=== PATIENT | female | born 2000 | race Caucasian/White ===

== ENCOUNTER 2024-07-31 13:39 | Outpatient (REF) | payer OTHER, SELFPAY ==
--- NOTE | 2024-07-31 13:44 | EMG_ITS ---
Chief complaint: On and off fingers tingling, denies neck pain Reason for referral: Evaluate for Carpal Tunnel Syndrome Referred by: Enmanuel SPANGLER Procedure done: Bilateral upper extremities NCS/EMG Precautions and/or limitations: None The limb temperature was monitored continuously and remained between 32-36 degrees C during the performance of the NCS. Nerve Conduction Studies Anti Sensory Summary Table ?Stim Site NR Onset (ms) Norm Onset (ms) Peak (ms) Norm Peak (ms) O-P Amp (?V) Norm O-P Amp Site1 Site2 Delta-0 (ms) Dist (cm) Yonatan (m/s) Norm Yonatan (m/s) Left Median Anti Sensory (2nd Digit) Wrist ? 2.3 3.3 <3.6 79.6 >10 Wrist 2nd Digit 2.3 14.0 61 Right Median Anti Sensory (2nd Digit) Wrist ? 2.3 3.3 <3.6 67.9 >10 Wrist 2nd Digit 2.3 14.0 61 Left Ulnar Anti Sensory (5th Digit) Wrist ? 2.4 3.3 <3.7 57.1 >15.0 Wrist 5th Digit 2.4 14.0 58 Right Ulnar Anti Sensory (5th Digit) Wrist ? 2.1 3.1 <3.7 70.4 >15.0 Wrist 5th Digit 2.1 14.0 67 Motor Summary Table ?Stim Site NR Onset (ms) Norm Onset (ms) O-P Amp (mV) Norm O-P Amp iAmp (mV) Amp (1st) (%) Site1 Site2 Delta-0 (ms) Dist (cm) Yonatan (m/s) Norm Yonatan (m/s) Left Median Motor (Abd Poll Brev) Wrist ? 2.9 <3.9 13.5 >4.5 18.7 100.0 Elbow Wrist 3.7 21.0 57 >45 Elbow ? 6.6 13.3 18.1 98.5 Right Median Motor (Abd Poll Brev) Wrist ? 2.8 <3.9 12.4 >4.5 15.5 100.0 Elbow Wrist 3.7 19.0 51 >45 Elbow ? 6.5 12.1 14.7 97.6 Left Ulnar Motor (Abd Dig Minimi) Wrist ? 2.7 <3.0 6.8 >5 8.8 100.0 B Elbow Wrist 3.2 19.0 59 >45 B Elbow ? 5.9 6.4 8.9 94.1 A Elbow B Elbow 1.4 10.0 71 >45 A Elbow ? 7.3 2.7 5.5 39.7 Right Ulnar Motor (Abd Dig Minimi) Wrist ? 3.0 <3.0 7.0 >5 9.0 100.0 B Elbow Wrist 3.0 20.0 67 >45 B Elbow ? 6.0 7.1 9.1 101.4 A Elbow B Elbow 1.0 10.0 100 >45 A Elbow ? 7.0 6.4 8.4 91.4 Comparison Summary Table ?Stim Site NR Peak (ms) Norm Peak (ms) P-T Amp (?V) Site1 Site2 Delta-P (ms) Norm Delta (ms) Right Median/Radial Dig I Comparison (Digit 1 - 10cm) Median ? 2.6 <2.9 63.5 Median Radial -0.5 Radial ? 3.1 <2.8 39.5 EMG ?Side Muscle Nerve Root Ins Act Fibs Psw Amp Dur Poly Recrt Int Pat Comment Right 1stDorInt Ulnar C8-T1 Nml Nml Nml Nml Nml 0 Nml Complete Right FlexCarRad Median C6-7 Nml Nml Nml Nml Nml 0 Nml Complete Right Biceps Musculocut C5-6 Nml Nml Nml Nml Nml 0 Nml Complete Right Triceps Radial C6-7-8 Nml Nml Nml Nml Nml 0 Nml Complete Right Deltoid Axillary C5-6 Nml Nml Nml Nml Nml 0 Nml Complete Left 1stDorInt Ulnar C8-T1 Nml Nml Nml Nml Nml 0 Nml Complete Left FlexCarRad Median C6-7 Nml Nml Nml Nml Nml 0 Nml Complete Left Biceps Musculocut C5-6 Nml Nml Nml Nml Nml 0 Nml Complete Left Triceps Radial C6-7-8 Nml Nml Nml Nml Nml 0 Nml Complete Left Deltoid Axillary C5-6 Nml Nml Nml Nml Nml 0 Nml Complete Paraspinal EMG ?Side Muscle Nerve Root Ins Act Fibs Psw Comment Right Cervical Upper Rami Nml Nml Nml Right Cervical Mid Rami Nml Nml Nml Right Cervical Lower Rami Nml Nml Nml Left Cervical Upper Rami Nml Nml Nml Left Cervical Mid Rami Nml Nml Nml Left Cervical Lower Rami Nml Nml Nml FINDINGS: All motor and sensory nerves tested showed normal latencies, amplitudes and conduction velocities. Concentric needle EMG was performed in selected muscles of the bilateral upper extremities and cervical paraspinals. Study did not reveal signs of electric abnormalities as shown in the table above. IMPRESSION: 1. This is a normal study. 2. There is no electrodiagnostic evidence for median neuropathy, ulnar neuropathy, brachial plexopathy, or cervical radiculopathy. Thank you for your kind referral. Louise Blanca MD, BIB Board Certified, [place] [employer] and [employer] (ABPMR) Board Certified, [place] Board [employer] Electrodiagnostic Medicine (ABEM) CODIN [phone] MTDD
--- OUTSIDE RECORDS SUMMARY | 2024-07-31 17:05 | XMS_ITS | Data Portability ---
Author Organization [facility], [facility] Address [address] [place] [address] Assessment No assessment recorded. Plan of Treatment Reminders Order Date Submit Date Provider Last Modified By Organization Details Last Modified Time Details Appointments None recorded. Lab rapid flu (A+B) 2021 022 [email or web address] 1 [facility], [address] [place] [address], [phone], 18:27:18 urinalysis, dipstick 2021 022 [email or web address] 1 [facility], [address] [place] [address], [address], 18:27:18 test, urine 2021 [email or web address] [place] [address], [address] [place] [address], [address], 18:27:18 Referral None recorded. Procedures None recorded. Surgeries None recorded. Imaging electrocard iogram 2021 022 [email or web address] 9 [facility], [address] [place] [address], [address], 18:31:02 Medication Orders ondansetron HCl 4 mg tablet 2021 022 [id number], [address] [place], [address], 18:27:50 Patient TargetsNo targets recorded. Patient Instructions Encounter Date Encounter Id Patient Instructions Last Modified By Organization Details Last Modified Time 04/26/2022 [id number] nausea and vomiting: care instructions [email or web address] Not available 04/26/2022 18:27:48 dehydration: car e instructions [email or web address] Not available 04/26/2022 18:27:48 oral rehydration : care instructions [email or web address] Not available 04/26/2022 18:27:48 Reason for Referral None Reported. Results Created Date Observation Date Name Description Value Unit Range Abnormal Flag Note LastModifiedBy Organization Detail LastModifiedTime 04/26/20 22 04/26/2022 rapid flu (A+B) Unknown Analyte Normal = Negati ve Not Available 20[address] [address], [address], 04/26/2022 17:10:53 04/26/20 22 04/26/2022 rapid flu (A+B) Unknown Analyte Normal = Negati ve Not Available 2099turner [address], [address], 04/26/2022 17:10:53 04/26/20 22 04/26/2022 rapid flu (A+B) Unknown Analyte negati ve Not Available [facility] [address], [address], 04/26/2022 17:10:53 04/26/20 22 04/26/2022 rapid flu (A+B) Unknown Analyte negati ve Not Available [facility] [address], [address], 04/26/2022 17:10:53 04/26/20 22 04/26/2022 pregn mariely test, urine Unknown Analyte Normal = Negati ve Not Available 2099turner [address], [address], 04/26/2022 17:11:24 04/26/20 22 04/26/2022 pregn mariely test, urine Unknown Analyte negati ve Not Available 2099[facility] ac [address], [place], [address], 04/26/2022 17:11:24 04/26/20 22 04/26/2022 urina lysis , dipst ick Unknown Analyte Normal = light yellow Not Available 2099[facility] [address], [place], [address], 04/26/2022 17:11:06 04/26/20 22 04/26/2022 urina lysis , dipst ick Unknown Analyte Normal = clear Not Available [facility] [address], [place], [address], 04/26/2022 17:11:06 04/26/20 22 04/26/2022 urina lysis , dipst ick Unknown Analyte Normal = negati ve Not Available 2099turner [address], [place], [address], 04/26/2022 17:11:06 04/26/20 22 04/26/2022 urina lysis , dipst ick Unknown Analyte Normal = Negati ve Not Available [facility] [address], [place], [address], 04/26/2022 17:11:06 04/26/20 22 04/26/2022 urina lysis , dipst ick Unknown Analyte Normal = Negati ve Not Available 20[address] ac [address], [place], [address], 04/26/2022 17:11:06 04/26/20 22 04/26/2022 urina lysis , dipst ick Unknown Analyte Normal = 1.010, 1.015, 1.020 Not Available [address]er [address], [place], [address], 04/26/2022 17:11:06 04/26/20 22 04/26/2022 urina lysis , dipst ick Unknown Analyte Normal = Negati ve Not Available 2099[facility] ac [address], [place], [address], 04/26/2022 17:11:06 04/26/20 22 04/26/2022 urina lysis , dipst ick Unknown Analyte Normal = 6.5, 7.0, 7.5, 8.0 Not Available 20[address] ac [address], [place], [address], 04/26/2022 17:11:06 04/26/20 22 04/26/2022 urina lysis , dipst ick Unknown Analyte Normal = Negati ve Not Available [facility] [address], [place], [address], 04/26/2022 17:11:06 04/26/20 22 04/26/2022 urina lysis , dipst ick Unknown Analyte Normal = 0.2, 1.0 Not Available [address] ac [address], [place], [address], 04/26/2022 17:11:06 04/26/20 22 04/26/2022 urina lysis , dipst ick Unknown Analyte Normal = Negati ve Not Available [address] [address], [place], [address], 04/26/2022 17:11:06 04/26/20 22 04/26/2022 urina lysis , dipst ick Unknown Analyte Normal = Negati ve Not Available 2099[facility] [address], [place], [address], 04/26/2022 17:11:06 04/26/20 22 04/26/2022 urina lysis , dipst ick Unknown Analyte Yellow Not Available parisa [address], [place], [address], 04/26/2022 17:11:06 04/26/20 22 04/26/2022 urina lysis , dipst ick Unknown Analyte Clear Not Available parisa [address], [place], [address], 04/26/2022 17:11:06 04/26/20 22 04/26/2022 urina lysis , dipst ick Unknown Analyte Negati ve Not Available turner ac [address], [place], [address], 04/26/2022 17:11:06 04/26/20 22 04/26/2022 urina lysis , dipst ick Unknown Analyte Small Not Available parisa [address], [place], [address], 04/26/2022 17:11:06 04/26/20 22 04/26/2022 urina lysis , dipst ick Unknown Analyte 40 mg/dL Not Available turner ac [address], [place], [address], 04/26/2022 17:11:06 04/26/20 22 04/26/2022 urina lysis , dipst ick Unknown Analyte 1.030 Not Available parisa [address], [place], [address], 04/26/2022 17:11:06 04/26/20 22 04/26/2022 urina lysis , dipst ick Unknown Analyte Negati ve Not Available turner pe [address], [place], [address], 04/26/2022 17:11:06 04/26/20 22 04/26/2022 urina lysis , dipst ick Unknown Analyte 6.5 Not Available parisa [address], [place], [address], 04/26/2022 17:11:06 04/26/20 22 04/26/2022 urina lysis , dipst ick Unknown Analyte Negati ve Not Available [address] ac [address], [place], [address], 04/26/2022 17:11:06 04/26/20 22 04/26/2022 urina lysis , dipst ick Unknown Analyte 0.2 E.U./d L Not Available [address] ac [address], [place], [address], 04/26/2022 17:11:06 04/26/20 22 04/26/2022 urina lysis , dipst ick Unknown Analyte Negati ve Not Available [address] ac [address], [place], [address], 04/26/2022 17:11:06 04/26/20 22 04/26/2022 urina lysis , dipst ick Unknown Analyte Negati ve Not Available [address]turner [address], [place], [address], 04/26/2022 17:11:06 04/26/20 22 04/26/2022 elect rocar diogr am No observ ation record ed. [email or web address] [address]parisa [address], [place], [address], 04/26/2022 18:27:43 04/27/20 elect rocar diogr am No observ ation record ed. [email or web address] Not Available 19:35:31 Result Notes None recorded. Problems No Known Problems Procedures Surgical History None recorded. Imaging Results Imaging Date Name Status LastModified by Organization Details LastModified Time 04/26/2022 electrocardiogram completed [email or web address] [address] [facility], [place], [address], 04/26/2022 18:27:43 04/27/2022 electrocardiogram completed [email or web address] Infor mation not available 04/27/2022 19:35:31 Procedure Notes None recorded. Medical Equipment None Reported. Allergies No known drug allergies Medications Name Sig Start Date Stop Date Status Note LastModified by Organization Details LastModified Time ondansetron HCl 4 mg tablet Take 1 tablet every 6 hours by oral route as directe d. 2021 active Not Available Not Available Not Avai lable etonogestrel 0.12 mg-ethinyl estradiol 0.015 mg/24 hr vaginal ring 04/26 completed Not Available Not Available Not Available Xulane 150 mcg-35 mcg/24 hr transdermal patch active Not Available Not Available Not Available Vitals Date Recorded Body height Body mass index (BMI) Body mass index (BMI) Percentile per age and sex Body weight Pain severity - 0-10 verbal numeric rating [Score] - Reported Heart rate Provider Name and Address Organization Details Last Updated DateTime 2 170.18 cm 25.1 kg/m2 77 % 79632.7 8 g 8 102 /min LEON VARGAS PA - [facility] 2 18:17:00 Date Recorded Body temperature Respiratory rate Oxygen saturation Oxygen saturation in Arterial blood by Pulse oximetry Heart rate Systolic blood pressure Diastolic blood pressure Provider Name and Address Organization Details Last Updated DateTime 2 97 [degF] 18 /min 100 % 100 % 116 /min 133 mm[Hg] 88 mm[Hg] EVGENY TERRY PA - [facility] 2 17:16:23 Date Recorded Heart rate Provider Name an d Address Organization Details Last Updated DateTime 04/26/2022 120 /min MAX MCELROY MD [address] [place], [address], [place] - [facility] 04/26/2022 17:36:19 Social History Question Answer Notes LastModified by Organizat ion Details LastModified Time Tobacco Smoking Status Never Smoker ANÍBAL Wynn - [facility] 04/26/2022 17:07:58 What Is Your Level Of Alcohol Consumption? None Information not available 04/26/2022 Are You Currently Employed? Yes Information not available 04/26/2022 Do You Use Any Illicit Or Recreational Drugs? No Information not available 04/26/2022 Have You Recently Traveled Abroad? No Information not available 04/26/2022 Do You Or Have You Ever Used Any Other Forms Of Tobacco Or Nicotine? No Information not available 04/26/2022 Sex: Unknown Functional Status None recorded. Mental Status None recorded. Family History Relationship Description Onset Age of this Age Resolved Age Notes LastModified by Organization Details LastModified Time Father No current problems or disability Not available 04/26 17:07:34 Mother No current problems or disability Not available 04/26 17:07:34 Mother Malignant neoplastic disease Not available 2021 17:07:43 Medical History No medical history recorded. Gynecological History Statement/Question Response Date of LMP 04/04/2022 Obstetrics History GPAL:G 0 P 0 0 0 0 Past Encounters Encounter ID Performer Location Encounter Start Date Encounter Closed Date Diagnosis/Indication Diagnosis SNOMED-CT Code Diagnosis ICD10 Code Diagnosis Note [id number] [address] [address] 05/20/2019 09:48:42 05/20/2019 10:47:25 [id number] [facility] [address] [place] [address] 06/14/2018 16:54:11 06/14/2018 17:07:35 [id number] [facility] [address] [place] [address] 04/26/2022 13:27:11 04/26/2022 18:31:02 Nausea 233378247 R11.0 Drink plenty of fluids If your symptoms are getting worse, or if you develop new symptoms that concern you, you should call 911 or go to the Emergency Department . Return to [facility] or see your primary care physician if your symptoms fail to improve in 3-5 days. You should follow up sooner if your symptoms worsen significan tly or if you develop new symptoms that concern you. Tachycardia 8182980 R00. 0 As we discussed this is likely due to relative dehydratio n Dehydration 94533037 E86 .0 If your symptoms worsen or persist you should be re-evaluat ed. Drink plenty of fluids If your symptoms are getting worse, or if you develop new symptoms that concern you, you should call 911 or go to the Emergency Department . Health Concerns Section Related Observation LastModified by Organization Detai ls LastModified Time None Recorded Concern Status LastModified by Organization Details LastModified Time None Recorded Advance Directives Directive None Recorded Payers Encounter Date Sequence Insurance Name Policy Number Policy Mccollum Covered Member ID Mccollum Member ID Guarantor Name 05/20/2019 1 [facility] [id number] Layne Duong [id number] Layne Duong 04/26/[address] [place] [address] [id number] Layne Duong [id number] Layne Duong Notes Date Note Type Note Provider Name and Address Organization Details Recorded Time 04/26/2022 text/html Nausea / Vomitin g UCReported bypatient.Severit y:moderate Duration:3 weeks Onset/Timing:inte rmittent; worse with meals Context:no one else with similar symptoms; no possible food sources; no recent travel Alleviating Factors:nothing gives relief Aggravating Factors:eating Associated Symptoms:no fever;abdominal pain;diarrhea 3 wks of N/V and epigastric abd pain. Nausea is more consistent but vomiting happens mostly in the mornings. Home preg negative. Able to drink fine. Eating causes dry heaving and sometimes vomiting. Tried pepto but no help. Some chills/sweats. No abnl foods. No sick contacts. MAX MCELROY MD [address] [place], [address], [place] - [facility] 04/26/2022 18:48:07 OBGyn Episode No OBEpisode recorded.
--- OUTSIDE RECORDS SUMMARY | 2024-07-31 17:05 | XMS_ITS | Clinical Summary ---
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 Role Phone Unavailable Primary Care Provider Unavailabl e Medical History Medical History Date Comments Seizure (CMS/HCC) age 8 DX:Seizure (HC C) Family History Relation Name Status Comments Father Alive Maternal Grandfather Alive Maternal Grandmother Alive Mother Alive Paternal Grandfather Alive Paternal Grandmother Alive Sister Alive Social History Tobacco Use Types Packs/Day Years Used Date Smoking Tobacco: Never Alcohol Use Standard Drinks/Week Comments Not Asked 0 (1 standard drink = 0.6 oz pur e alcohol) Comments Unknown Sex and Gender Information Value Date Recorded Sex Assigned at Not on file Legal Sex Female 6:55 AM EST Gender Identity Not on file Sexual Orientation Not on file Obstetrics History Plan of Treatment Health Maintenance Due Date Last Done Comments Gonorrhea/Chlamydia Screening 2001 HPV Vaccines (1 - 3-dose series) 2016 Meningococcal B Vacine (1 of 2 - Standard) 2017 DTaP,Tdap,and Td Vaccines (1 - Tdap) 2020 Hepatitis B Vaccines (1 of 3 - 19+ 3-dose series) 2020 HIV Screening 04/09/2022 Cervical Cancer Screening: P ap Smear 2022 COVID-19 Vaccine ( - 2023-2 5 season) 2024 Influenza Vaccine (#1) 2024 HIB Vaccines Aged Out No longer eligi ble based on patient's age to complete this topic Hepatitis A Vaccines Aged Out No long er eligible based on patient's age to complete this topic IPV Vaccines Aged Out No longer eligi ble based on patient's age to complete this topic MMR Vaccines Aged Out No longer eligi ble based on patient's age to complete this topic Meningococcal ACWY Vaccine Aged Out N o longer eligible based on patient's age to complete this topic Pneumococcal Vaccine: Pediat rics (0 to 5 Years) and At-Risk Patients (6 to 64 Years) Aged Out No longer eligible b ased on patient's age to complete this topic RSV Immunization Patients Un jordana 20 months Aged Out No longer eligible b ased on patient's age to complete this topic Varicella Vaccines Aged Out No longer eligible based on patient's age to complete this topic
== END 2024-07-31 13:40 | disposition home or self-care (01) ==
LOC: HO.NEURO 13:39
PROVIDERS: Visit Provider Physician Assistant
DX: G56.03 Carpal tunnel syndrome, bilateral upper limbs (principal)
CPT/HCPCS: 95886; 95911

== ENCOUNTER → 2024-07-31 13:44 | Outpatient (BNV) | payer OTHER, SELFPAY | PROVIDERS: Visit Provider Physical Medicine & Rehabilitation | DX: R20.0 Anesthesia of skin (principal); R20.2 Paresthesia of skin | CPT/HCPCS: 95886; 95911 ==

== ENCOUNTER 2024-08-26 08:56 | Outpatient (RCR) | payer OTHER, SELFPAY | END 2024-10-30 11:29 | disposition home or self-care (01) | LOC: HO.OT 08:56 | PROVIDERS: PCP Nurse Practitioner Family; Visit Provider Physician Assistant | DX: G56.03 Carpal tunnel syndrome, bilateral upper limbs (principal) | CPT/HCPCS: 97110; 97140; 97165; 97535 ==